=== PATIENT | male | born 1965 | race Caucasian/White ===

== ENCOUNTER 2024-04-17 07:40 | Outpatient (CLI) | payer BC, SELFPAY ==
--- NOTE | ~2024-04-17 | CT_ITS ---
EXAMINATION: CT abdomen pelvis wo/w con DATE: 04/17/2024 08:27 INDICATION: Microscopic hematuria. TECHNIQUE: Computed tomography (CT) of the abdomen and pelvis was performed without and with intraven ous contrast using a total of 130 mL Omnipaque-350 intravenous contrast with a double-bolus technique for simultaneous opacification of the renal parenchyma and renal collecting system. Automated exposu re control and iterative reconstruction technique were employed. The dose-length product was 2708.76 mGy-cm. COMPARISON: CT abdomen and pelvis 06/17/2013 FINDINGS: The visualized portions of the lung bases demonstrate mild atelectasis. Calcified left lung nodules a re consistent with old granulomatous disease. No pleural effusion. The heart size is normal. No peric ardial effusion. There is a 4 mm cyst in the liver. The gallbladder, spleen, pancreas, adrenal glands , and right kidney are normal. There is an 8 mm hemorrhagic cyst in left kidney. There is a 5 mm cyst in left kidney. There is no urolithiasis. Right ureter is not well opacified distally, but is normal . Left ureter is well opacified and is normal. There is a left inguinal hernia containing fat. The pr ostate is severely enlarged. There is diffuse bladder wall thickening. There are no dilated loops of bowel. The appendix is not visualized. There are no pathologically enlarged lymph nodes. There is no free intraperitoneal fluid. There is mild lumbar spondylosis. IMPRESSION: 1. Diffuse bladder wall thickening, likely secondary to chronic outlet obstruction from the severely enlarged prostate. 2. No specific etiology for hematuria. Reviewed, dictated and finalized at location A. IMPRESSION: 1. Diffuse bladder wall thickening, likely secondary to chronic outlet obstruct ion from the severely enlarged prostate. 2. No specific etiology for hematuria.
== END 2024-04-17 07:41 | disposition home or self-care (01) ==
PROVIDERS: PCP Family Medicine; Visit Provider Urology
DX: R31.29 Other microscopic hematuria (principal)
CPT/HCPCS: 74178; Q9967